=== PATIENT | female | born 1985 | race African-American/Black ===

== ENCOUNTER 2018-02-24 11:42 | Emergency (ER) | payer MEDICAID ==
[~2018-02-24] VITALS: Ht 175.3 cm; Wt 52.2 kg
[2018-02-24 11:57] VITALS: BP 130/76
[2018-02-24] MEDS: LORazepam 0.5 MG TAB PO ONE (12:38)
[2018-02-24 13:06] LABS: Urine Bacteria NONE SEEN /hpf (None Seen); Urine Blood Negative /uL (Negative); Urine Mucus FEW (None Seen); Urine Specific Gravity 1.011 (1.001-1.035); Urine WBC 4 /hpf (0 - 5)
[2018-02-24 13:35] LABS: Basophils # (auto) 0 uL; Basophils % (auto) 0.7 % (0.0-2.0); Eosinophils # (auto) 0.1 uL; Eosinophils % (auto) 0.9 % (0.0-7.0); Hematocrit 44.9 % (36.0-46.0); Hemoglobin 14.3 g/dL (12.2-16.2); Lymphocytes # (auto) 2.2 uL; Lymphocytes % (auto) 31.4 % (10.0-50.0); Mean Corpuscular Hgb Conc. 31.9 g/dL (32.0-36.0); Monocytes # (auto) 0.5 uL; Monocytes % (auto) 7.1 % (0.0-12.0); Neutrophils # (auto) 4.1 uL; Neutrophils % (auto) 59.9 % (37.0-80.0); Nucleated Red Blood Cells % 0.2 %; Platelet Count (auto) 384 10^3/uL (140-450); Red Blood Cells 4.93 10^6/uL (4.0-5.20); Red Cell Distribution Width 17.3 % (11.8-14.3); White Blood Cell 6.9 10^3/uL (4.4-10.8)
[2018-02-24 13:56] LABS: BUN/Creatinine Ratio 12.6; Bilirubin, Total 0.6 mg/dL (0.2-1.0); Potassium 3.9 mmol/L (3.5-5.1); Total Protein 7.9 g/dL (6.4-8.2)
[2018-02-24] MEDS: KETOROLAC TROMETH 60MG/2ML VIAL IM ONE (16:09)
== END 2018-02-24 17:13 | disposition home or self-care (01) ==
LOC: EDBD 11:42 → ER 11:42
DX: R10.9 Unspecified abdominal pain (principal); J45.909 Unspecified asthma, uncomplicated; F17.210 Nicotine dependence, cigarettes, uncomplicated
CPT/HCPCS: 36415; 80053; 81001; 81025; 83690; 85025; 96372; 99284; J1885

== ENCOUNTER 2025-05-05 21:16 | Emergency (ER) | payer OTHER, MEDICAID ==
[~2025-05-05] VITALS: Ht 175.3 cm; Wt 69.0 kg
[2025-05-05 22:50] VITALS: BP 146/95; PULSE 79; RESP 18; TEMP 98.1; O2SAT 98
[2025-05-05] MEDS: KETOROLAC TROMETH 60MG/2ML VIAL IM ONE (22:50)
[2025-05-05] MEDS: HYDROcodone-ACET 5/325MG TAB PO ONE (22:50)
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
== END 2025-05-05 23:26 | disposition home or self-care (01) ==
LOC: ER 21:16
DX: S13.4XXA Sprain of ligaments of cervical spine, initial encounter (principal); S29.012A Strain of muscle and tendon of back wall of thorax, initial encounter; F17.210 Nicotine dependence, cigarettes, uncomplicated; J45.909 Unspecified asthma, uncomplicated; F10.90 Alcohol use, unspecified, uncomplicated; V89.2XXA Person injured in unspecified motor-vehicle accident, traffic, initial encounter; Y93.89 Activity, other specified; Y92.488 Other paved roadways as the place of occurrence of the external cause; Y99.8 Other external cause status
CPT/HCPCS: 72040; 72070; 96372; 99284; J1885